=== PATIENT | male | born 1960 | race Caucasian/White ===

== ENCOUNTER → 2023-07-11 08:53 | Outpatient (CLI) | payer OTHER, SELFPAY ==
[2023-07-11 10:21] LABS: Add Manual Diff / Slide Review NO; Basophils Absolute Auto 0 /uL (0-100); Basophils Percent Auto 0.5 % (0-2); Eosinophils Absolute Auto 200 /uL (0-450); Eosinophils Percent Auto 2.9 % (2-4); Hematocrit 40.8 % (41-53); Hemoglobin 13.9 g/dL (13.5-17.5); Lymphocytes Absolute Auto 2100 /uL (1100-4500); Lymphocytes Percent Auto 32.5 % (25-40); Mean Corpuscular HGB Conc 34.1 % (30-36); Mean Corpuscular Volume 93.6 fL (80-100); Monocytes Absolute Auto 400 /uL (0-900); Monocytes Percent Auto 6.1 % (3-14); Neutrophils Absolute Auto 3800 /uL (1500-7000); Platelet Count 263 X10^3/uL (150-400); Red Blood Cell Count 4.36 X10^6/uL (4.5-5.9); Red Cell Distribution Width 13.6 % (11.6-14.8); White Blood Cell Count 6.6 X10^3/uL (4.5-11.0)
[2023-07-11 10:48] LABS: HEMOLYSIS < 15 (0-50)
[2023-07-11 10:49] LABS: Alanine Aminotransferase 20 IU/L (<50); Albumin 4.3 g/dL (3.5-5.0); Albumin Globulin Ratio 1.5 (1.0-2.8); Alkaline Phosphatase 59 U/L (38-126); Aspartate Aminotransferase 23 IU/L (17-59); BUN Creatinine Ratio 18.2 (6-22); Bilirubin Total 0.8 mg/dL (0.2-1.3); Blood Urea Nitrogen 14 mg/dL (9-20); Carbon Dioxide 29 mmol/L (22-32); Chloride 106 mmol/L (98-107); Cholesterol 230 mg/dL (140-199); Estimated Glomerular Filt Rate > 60 mL/min (>60); Globulin 2.9 g/dL (1.7-4.1); Glucose 88 mg/dL (80-110); HDL Cholesterol 63 mg/dL (40-60); LDL Cholesterol Calculated 138 mg/dL (<100); Sodium 140 mmol/L (137-145); Total Protein 7.2 g/dL (6.3-8.2); Triglycerides 146 mg/dL (35-150)
[2023-07-11 11:19] LABS: Prostate Specific Antigen Scrn 0.742 ng/mL (0.1-4.0)
[2023-07-11 12:51] LABS: Potassium 4.4 mmol/L (3.4-5.1)
[2023-07-11 16:49] LABS: HIV 1 & 2 Ab/Ag 4th Gen Combo NEGATIVE (NEGATIVE); Hep C Virus Ab w/Reflex Quant NEGATIVE s/c (NEGATIVE)
== END ==
PROVIDERS: PCP Family Medicine; Referring Provider Family Medicine; Visit Provider Family Medicine
DX: Z11.59 Encounter for screening for other viral diseases (principal); Z13.220 Encounter for screening for lipoid disorders; E87.8 Other disorders of electrolyte and fluid balance, not elsewhere classified; Z13.9 Encounter for screening, unspecified; Z12.5 Encounter for screening for malignant neoplasm of prostate; Z11.4 Encounter for screening for human immunodeficiency virus [HIV]; D64.9 Anemia, unspecified; E78.5 Hyperlipidemia, unspecified
CPT/HCPCS: 36415; 80053; 80061; 85025; 86803; 87389; G0103

== ENCOUNTER → 2024-12-24 08:27 | Outpatient (CLI) | payer OTHER, SELFPAY ==
[2024-12-24 08:57] LABS: Hematocrit 40.9 % (41-53); Hemoglobin 14.3 g/dL (13.5-17.5); Mean Corpuscular HGB Conc 34.9 % (30-36); Mean Corpuscular Hemoglobin 32.4 PG (26-34); Mean Corpuscular Volume 92.8 fL (80-100); Platelet Count 251 X10^3/uL (150-400)
[2024-12-24 09:17] LABS: Alanine Aminotransferase 19 IU/L (<50); Albumin 4.3 g/dL (3.5-5.0); Albumin Globulin Ratio 1.5 (1.0-2.8); Alkaline Phosphatase 57 U/L (38-126); Blood Urea Nitrogen 13 mg/dL (9-20); Calcium 9.0 mg/dL (8.4-10.2); Carbon Dioxide 29 mmol/L (22-32); Chloride 103 mmol/L (98-107); Cholesterol 245 mg/dL (140-199); Estimated Glomerular Filt Rate > 60 mL/min (>60); Globulin 2.8 g/dL (1.7-4.1); Glucose 93 mg/dL (70-99); HDL Cholesterol 70 mg/dL (40-60); HEMOLYSIS < 15 (0-50); Potassium 4.2 mmol/L (3.4-5.1); Sodium 138 mmol/L (137-145); Total Protein 7.1 g/dL (6.3-8.2); Triglycerides 71 mg/dL (35-150)
== END ==
PROVIDERS: PCP Family Medicine; Referring Provider Family Medicine; Visit Provider Family Medicine
DX: E78.2 Mixed hyperlipidemia (principal); Z12.5 Encounter for screening for malignant neoplasm of prostate
CPT/HCPCS: 36415; 80053; 80061; 85027; G0103

== ENCOUNTER 2025-02-17 11:54 | Day surgery (SDC) | payer OTHER, SELFPAY ==
[2025-02-11 12:22] VITALS: BMI 26.6
[2025-02-17 12:14] VITALS: BP 128/76; PULSE 80; RESP 16; TEMP 36.6; O2SAT 98
[2025-02-17] MEDS: LACTATED RINGERS 1,000 ML 42 ML IV (12:19)
--- NOTE | 2025-02-17 12:20 | PM.HP.IH.1 ---
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 [employer] Smoking Status: Never smoker alcohol intake: current substance use type: does not use Meds Home Medications and Allergies Allergies Allergy/AdvReac Type Severity Reaction Status Date / Time No Known Drug Allergies Allergy Verified 02/17/25 12:09 Exam Vital Signs (past 8 hours): - 02/17/25 12:14 Temperature 97.8 F Pulse Rate 80 Respiratory Rate 16 Blood Pressure 128/76 Pulse Oximetry 98 Oxygen Delivery Method Room Air Oxygen Delivery Method Room Air Narrative Exam Narrative: Oropharynx free of lesions Chest clear to auscultation percussion Cardiac exam reveals no S3 or murmur Assessment & Plan Assessment & Plan narrative: Colorectal cancer screening with possible history of polyps in the distant past. Risks, benefits alternatives explained. Time-Based Coding :: [TOTAL MINUTES] spent with patient and on the chart (including review of chart, obtaining history, exam, reviewing outside data, placing orders, documenting exam and treatment plan, and counseling patient) on [DATE]. [employer] Document charge(s): No
--- NOTE | 2025-02-17 12:22 | PM.OP.COLON ---
Operative Date/Time/Diagnoses Date of procedure: 02/17/25 Time of procedure: 12:43 Pre-op diagnosis: Colorectal cancer screening Post-op diagnosis: same Procedure & Clinicians Study performed: Colonoscopy Same procedure(s) as scheduled: Yes Indications: Screening colorectal cancer Surgeon: Delphine Dc Anesthesia Type: MAC +/- Procedure Notes Procedure in detail: After informed consent was obtained the patient was placed in left lateral decubitus position. The video colonoscope was introduced the rectum slowly advanced cecum. Preparation was good. On slow withdrawal mucosa was carefully examined. The scope was removed. The patient tolerated procedure well. Blood loss none Complications none Sedation mac Findings 1. Normal colonoscopy to cecum Patient should have follow-up colonoscopy in 10 years Estimated Blood Loss: 0 Complications: none
[2025-02-17 12:47] VITALS: BP 122/75; PULSE 72; RESP 20; TEMP 36.3; O2SAT 98
[2025-02-17 12:51] VITALS: BP 112/65; PULSE 67; RESP 22; TEMP 36.6; O2SAT 98
== END 2025-02-17 13:05 | disposition home or self-care (01) ==
PROVIDERS: Internal Medicine Gastroenterology; PCP Family Medicine; Referring Provider Family Medicine; Visit Provider Surgery
PROC: 0DJD8ZZ Inspection of Lower Intestinal Tract, Via Natural or Artificial Opening Endoscopic (ICD-10-PCS; CPT 45378; principal; 2025-02-17 13:00)
DX: Z12.11 Encounter for screening for malignant neoplasm of colon (principal)
CPT/HCPCS: 45378; J2704; J7120